=== PATIENT | female | born 1950 | race Caucasian/White ===

== ENCOUNTER → 2017-10-10 | Outpatient (CLI) | payer OTHER, MEDICARE | LOC: FIMAGING 11:58 | PROVIDERS: ATTEND Orthopaedic Surgery | DX: Z01.818 Encounter for other preprocedural examination (principal); M17.12 Unilateral primary osteoarthritis, left knee; M11.262 Other chondrocalcinosis, left knee; M25.462 Effusion, left knee ==

== ENCOUNTER 2017-10-30 08:57 | Observation (INO) | payer OTHER, MEDICARE ==
[~2017-10-30 08:57] MED LIST: ROPIVACAINE 0.2% 80 MG, EPINEPHrine 0.2 MG, KETOROLAC TROMETHAMINE 30 MG in SYRINGE 0 ML IU ONE; TRANEXAMIC ACID 3,000 MG in NS (SYRINGE) 50 ML IRR ONE
[2017-10-30] MEDS ORDERED: ceFAZolin 2 GM/SWFI 2 GM/20 ML SYR IVP ONE (09:07)
[2017-10-30] MEDS ORDERED: FAMOTIDINE 20 MG TAB PO ONE (09:07)
[2017-10-30] MEDS ORDERED: ACETAMINOPHEN 325 MG TAB PO ONE (09:07)
[2017-10-30] MEDS ORDERED: LR 1,000 ML IV ONE (09:07)
[2017-10-30] MEDS ORDERED: DEXAMETHASONE 4 MG/ML VIAL IVP ONE (09:07)
[2017-10-30] MEDS ORDERED: LIDOCAINE 1% 2 ML INJ ID PRN (09:07)
--- NOTE | 2017-10-30 09:14 | PDHPUP ---
History & Physical Update H&P update statement: This history and physical update is based on an assessment of the patient which was completed after admission or registration (within 24 hours), but prior to the surgery/procedure. H&P update: H&P reviewed & patient examined, no change in patient's condition since H&P completed
[2017-10-30] MEDS ORDERED: TRANEXAMIC ACID 3,000 MG/50 ML BAG IRR ONE (09:29)
[2017-10-30] MEDS ORDERED: PROPOFOL/EMULSION 500 MG/50 ML BOTTLE IV ONE (10:50)
[2017-10-30] MEDS ORDERED: BUPIVACAINE/DEXTROSE 7.5MG/ML 2 ML SPINAL AMP SP ONE (10:52)
--- NOTE | 2017-10-30 10:52 | PDANEPAE ---
ANE Past Medical History - Cardiovascular History Hx Hypertension: No Hx Arrhythmias: No Hx Chest Pain: No Hx Coronary Artery / Peripheral Vascular Disease: No Hx CHF / Valvular Disease: No Hx Palpitations: No - Pulmonary History Hx COPD: No Hx Asthma/Reactive Airway Disease: No Hx Recent Upper Respiratory Infection: No Hx Oxygen in Use at Home: No Hx Sleep Apnea: No Sleep Apnea Screening Result - Last Documented: Negative - Neurologic History Hx Cerebrovascular Accident: No Hx Seizures: No Hx Dementia: No - Endocrine History Hx Diabetes: Yes Endocrine History Comment: DM type 2 - Renal History Hx Renal Disorders: No - Liver History Hx Hepatic Disorders: No - Neurological & Psychiatric Hx Hx Neurological and Psychiatric Disorders: No - Cancer History Hx Cancer: No - Congenital Disorder History Hx Congenital Disorders: No - GI History Hx Gastrointestinal Disorders: No - Other Health History Other Health History: left knee arthritis - Chronic Pain History Chronic Pain: No - Surgical History Prior Surgeries: left knee surgery. hysterectomy. bilteral cataract removal ANE Review of Systems Review of Systems: - Exercise capacity METS (RN): 4 METS ANE Patient History - Allergies Allergies/Adverse Reactions: adhesive tape Allergy (Mild, Verified 09/24/17 15:35) Rash Sulfa (Sulfonamide Antibiotics) Allergy (Verified 12/10/14 07:21) sulfamethoxazole [From Septra] Allergy (Verified 12/10/14 07:21) trimethoprim [From Septra] Allergy (Verified 12/10/14 07:21) - Home Medications Home Medications: Atorvastatin Calcium [Lipitor 20 mg (*)] 20 mg PO DAILY 09/24/17 [Last Taken ] Cholecalciferol Vit D3 [Vitamin D3 (*)] 1,000 units PO DAILY 09/24/17 [Last Taken 10/23/17] Estrogens, Conjugated [Premarin] 0.45 mg PO DAILY 09/24/17 [Last Taken 10/23/17] Herbals/Supplements -Info Only 1 ea PO DAILY 09/24/17 [Last Taken 10/23/17] Ibuprofen [Motrin (*)] 200 - 600 mg PO DAILY PRN 09/24/17 [Last Taken 10/23/17] Lansoprazole [Prevacid] 30 mg PO DAILY 09/24/17 [Last Taken 10/23/17] Multivitamins [Multivitamin (*)] 1 each PO DAILY 09/24/17 [Last Taken 10/23/17] [place]-3 Fatty Acids [Fish Oil 1000 mg (*)] 1,000 mg PO DAILY 09/24/17 [Last Taken 10/23/17] Pioglitazone HCl/Metformin HCl [Pioglitazone-Metformin 15-500] 1 each PO BID 11/10 [Last Taken 10/25/17] - NPO status NPO Since - Liquids (Date): 10/30/17 NPO Since - Liquids (Time): 04:00 NPO Since - Solids (Date): 10/29/17 NPO Since - Solids (Time): 18:30 - Smoking Hx Smoking Status: Never smoked - Family Anes Hx Family Hx Anesthesia Complications: none ANE Labs/Vital Signs - Vital Signs Blood Pressure: 130/69 Heart Rate: 63 Respiratory Rate: 16 O2 Sat (%): 97 Height: 154.94 cm Weight: 67.132 kg ANE Physical Exam - Airway Neck exam: FROM Mallampati Score: Class 2 Mouth exam: normal dental/mouth exam - Pulmonary Pulmonary: no respiratory distress - Cardiovascular Cardiovascular: regular rate and rhythym - ASA Status ASA Status: II ANE Anesthesia Plan Anesthesia Plan: spinal Regional Anesthesia: single shot NB Total IV Anesthesia: Yes
[2017-10-30] MEDS ORDERED: PROPOFOL 200 MG/20 ML VIAL ONE (11:53)
[2017-10-30] MEDS ORDERED: LACTULOSE 20 GM/30 ML UDCUP PO PRN (12:20)
[2017-10-30] MEDS ORDERED: DIPHENOXYLATE/ATROPINE LOMOTIL 1 TAB PO PRN (12:20)
[2017-10-30] MEDS ORDERED: TEMAZEPAM 15 MG CAP PO PRN (12:20)
[2017-10-30] MEDS ORDERED: PROMETHAZINE HCL 25 MG/ML INJ IVP PRN (12:20)
[2017-10-30] MEDS ORDERED: POLYETHYLENE GLYCOL 3350 17 GM PKT PO PRN (12:20)
[2017-10-30] MEDS ORDERED: PROMETHAZINE HCL 25 MG SUPPR PR PRN (12:20)
[2017-10-30] MEDS ORDERED: METOCLOPRAMIDE 10 MG/2 ML VIAL IVP PRN (12:20)
[2017-10-30] MEDS ORDERED: BISACODYL 10 MG SUPP PR PRN (12:20)
[2017-10-30] MEDS ORDERED: ONDANSETRON DISINTEGRATING 4 MG TAB PO PRN (12:20)
[2017-10-30] MEDS ORDERED: CYCLOBENZAPRINE 10 MG TAB PO PRN (12:20)
[2017-10-30] MEDS ORDERED: diphenhydrAMINE 25 MG CAP PO PRN (12:20)
[2017-10-30] MEDS ORDERED: ONDANSETRON 4 MG/2 ML VIAL IVP PRN ×2 (12:20→12:33)
[2017-10-30] MEDS ORDERED: MAGNESIUM HYDROXIDE 30 ML UDCUP PO PRN (12:20)
--- NOTE | 2017-10-30 12:20 | POSTOPPROG ---
Post Op Note Date of Operation: 10/30/17 Surgeon: Halie Vega Senior Java Developer: zach vega Anesthesiologist: dr. barahona Anesthesia: Spinal, Other (Specify) (adductor canal block) Pre-op Diagnosis: L eft knee OA Post-op Diagnosis: same Indication: left knee pain due to OA that failed conservative measures Procedure: L TKA robot assisted Findings: severe knee OA Inf/Abcess present in the surg proc area at time of surgery?: No
[2017-10-30] MEDS ORDERED: D50W 25 GM/50 ML SYR IVP PRN (12:22)
[2017-10-30] MEDS ORDERED: LR 1,000 ML IV SCH (12:30)
[2017-10-30] MEDS ORDERED: MEPERIDINE 25 MG/ML SYR IVP PRN (12:33)
[2017-10-30] MEDS ORDERED: ALBUTEROL 3 ML DEYVIAL IH PRN (12:33)
[2017-10-30] MEDS ORDERED: fentaNYL 100 MCG/2 ML INJ IVP PRN (12:33)
[2017-10-30] MEDS ORDERED: NALOXONE HCL 0.4 MG/ML INJ IVP PRN (12:33)
--- NOTE | 2017-10-30 12:34 | POSTANESTH ---
Post Anesthetic Evaluation Cardiovascular Status: Similar to Pre-Op Cond Respiratory Status: Similar to Pre-op Cond. Level of Consciousness/Mental Status: Alert and Oriented Pain Control: Adequate, Prn Tx Ordered Nausea/Vomiting Control: Adequate, Prn Tx Ordered Complications Possibly Related to Anesthesia: None Noted
[2017-10-30] MEDS ORDERED: ceFAZolin 2 GM/DEXTROSE 100 ML IV SCH (14:00)
[2017-10-30] MEDS: oxyCODONE IR 5 MG TAB PO PRN ×3 (14:43→21:20)
[2017-10-30] MEDS: INSULIN REGULAR HUMAN 100 UNIT/ML UNIT SC SCH ×2 (18:33→21:22)
[2017-10-30] MEDS: ACETAMINOPHEN 325 MG TAB PO SCH (18:34)
--- NOTE | 2017-10-30 18:34 | GOP ---
[f rep st] OPERATIVE REPORT DATE OF OPERATION: 10/30/2017 SURGEON: Tian Osborne MD ENVIRONMENTAL MAINTENANCE WORKER: LIBORIO Terrazas. ANESTHESIA: Spinal. PREOPERATIVE DIAGNOSIS: Left knee osteoarthritis. POSTOPERATIVE DIAGNOSIS: Left knee osteoarthritis. PROCEDURE PERFORMED: Left total knee arthroplasty with computer navigation, robotic assist. FINDINGS: ESTIMATED BLOOD LOSS: 30 cc. INDICATIONS: The patient is a 67-year-old female with severe and progressive pain and deformity of the left knee unresponsive to conservative care. The risks and benefits of surgical intervention were explained in detail. DESCRIPTION OF PROCEDURE: The patient was brought to the operative room and placed on the table in the supine position. Spinal anesthesia was induced without difficulty. A pneumatic tourniquet was applied about the left proximal thigh, and the leg was prepped and draped in a sterile fashion. The leg domingo was applied. After exsanguination by elevation the tourniquet was inflated to 250 mmHg. Incision was made anterior medial from the tibial tuberosity to a point 2 cm proximal to the superior pole of the patella. Medial parapatellar arthrotomy was carried out from the superior pole of the patella and posteriorly in line with the fibers of the Type II VMO. The medial collateral ligament was elevated and the infrapatellar fat pad was resected. The patella was everted and the articular surface was excised. A 32 mm patellar button was placed. Attention was turned first to the distal aspect of the femur. After exposure of the femur, 2 half pins were placed for fixation of the femoral array. In a similar fashion, 2 pins were placed anteromedial on the tibia for fixation of the tibial array. External land marking and registration of the hip center was performed without difficulty. Internal femoral and tibial registration was carried out without difficulty and the femoral and tibial checkpoints were placed and verified for accuracy. Attention was turned to the femur. The foot print for the size 4 femoral component was cut with the saw using the Buz robotic system and verified for accuracy against the CT based plan. In a similar fashion, the saw was used to cut the footprint for the size 3 tibial component using the Buz system and verified for accuracy against the CT based plan. The tibial articular surface was excised without difficulty, followed by the intercondylar box cut. The knee was extended and the remnants of the medial and lateral meniscus were excised. The posterior capsule was injected with ropivacaine, epinephrine and Toradol. A size 3 tibial tray was positioned. Trial reduction was then carried out. There was excellent range of motion, alignment, and stability using the 9 mm polyethylene. All trials were then removed. The joint was thoroughly irrigated and carefully dried. The Press-fit components were implanted. The permanent 9 mm polyethylene was placed without difficulty. The tourniquet was deflated and all bleeders were coagulated. The wound was thoroughly irrigated and closed using interrupted sutures of 2-0 Vicryl for the joint capsule. The subcu was closed with 3-0 Vicryl and the skin with 4-0 Monocryl. Dermabond and Steri-Strips were applied followed by a compressive dressing. The patient was then moved from the operating room to the recovery room in good condition, having tolerated the procedure well. /[id number]/MODL MTDD
[2017-10-30] MEDS: PIOGLITAZONE HCL 15 MG TAB PO SCH (18:35)
[2017-10-30] MEDS: metFORMIN HCL 500 MG TAB PO SCH (18:35)
[2017-10-30] MEDS: ceFAZolin 2 GM/DEXTROSE 100 ML IV SCH (18:39)
[2017-10-30] MEDS ORDERED: METFORMIN HCL PO SCH (21:00)
[2017-10-30] MEDS ORDERED: [UNRECOGNIZED DRUG - OTHER] PO SCH (21:00)
[2017-10-30] MEDS ORDERED: PIOGLITAZONE HCL PO SCH (21:00)
[2017-10-30] MEDS: SENNOSIDES/DOCUSATE SODIUM TAB PO SCH (21:19)
[2017-10-30] MEDS: ASPIRIN 81 MG CHEWABLE TAB PO SCH (21:21)
[2017-10-30] MEDS: FAMOTIDINE 20 MG TAB PO SCH (21:21)
[2017-10-31] MEDS: ACETAMINOPHEN 325 MG TAB PO SCH ×2 (01:39→06:25)
[2017-10-31] MEDS: ceFAZolin 2 GM/DEXTROSE 100 ML IV SCH (01:40)
[2017-10-31] MEDS: oxyCODONE IR 5 MG TAB PO PRN ×2 (02:16→09:54)
[2017-10-31 07:22] VITALS: BP 105/55; PULSE 60; RESP 16; TEMP 97.6; O2SAT 97
[2017-10-31] MEDS: INSULIN REGULAR HUMAN 100 UNIT/ML UNIT SC SCH (08:05)
[2017-10-31] MEDS: SENNOSIDES/DOCUSATE SODIUM TAB PO SCH (08:06)
[2017-10-31] MEDS: PIOGLITAZONE HCL 15 MG TAB PO SCH (08:07)
[2017-10-31] MEDS: metFORMIN HCL 500 MG TAB PO SCH (08:07)
[2017-10-31] MEDS: FAMOTIDINE 20 MG TAB PO SCH (08:07)
[2017-10-31] MEDS ORDERED: PANTOPRAZOLE SODIUM 40 MG TAB PO SCH (09:00)
[2017-10-31] MEDS ORDERED: ATORVASTATIN CALCIUM 20 MG TAB PO SCH (09:00)
[2017-10-31] MEDS ORDERED: LANSOPRAZOLE SUSP 3 MG/ML UDSYR (Peds) PO SCH (09:00)
[2017-10-31] MEDS: ASPIRIN 81 MG CHEWABLE TAB PO SCH (09:54)
--- NOTE | 2017-10-31 12:38 | SOAPPROG ---
SOAP Progress Note Assessment/Plan: Assessment: Patient is doing well POD 1 s/p L TKA Pain management: pain is well controlled on oral pain meds. VTE ppx: recommend aspirin 81 mg BID for 4 weeks, cont ROSETTA and SCDs Anemia: level is expected initially postop. Asymptomatic. Continue to monitor D/c planning: d/c to home today pending release from PT Plan: 10/31/17 12:37 Subjective: Mita is doing well today, denies SOB, chest pain and n/V. Objective: Vital Signs Temp Pulse Resp BP Pulse Ox 36.4 C 60 16 105/55 L 97 10/31/17 07:20 10/31/17 07:20 10/31/17 07:20 10/31/17 07:20 10/31/17 07:20 Laboratory Results 10/31/17 05:05 10/30/17 10/31/17 11/01/17 05:59 05:59 05:59 Intake Total 1050 Output Total 1200 200 Balance -150 -200 LLE: incision dressing is clean and dry, NVI, +pf/df ICD10 Worksheet Patient Problems: Problems Problem Status Onset Primary localized osteoarthritis of left knee Acute
== END 2017-10-31 12:42 | disposition home or self-care (01) ==
LOC: F3N 08:57 → INTOOBSV 08:57 → F3N 14:09
PROVIDERS: ADMIT Orthopaedic Surgery; ATTEND Orthopaedic Surgery
PROC: 0SRD0JZ Replacement of Left Knee Joint with Synthetic Substitute, Open Approach (ICD-10-PCS; principal; 2017-10-30 11:15)
DX: M17.12 Unilateral primary osteoarthritis, left knee (principal)
CPT/HCPCS: 27447; 73560; 88311; 97110; 97116; 97161; 97165; C1776; G8978; G8979; G8987; G8988; G8989; J0171; J0690; J1100; J1815; J1885; J2704; J2795

== ENCOUNTER 2017-12-11 05:40 | Day surgery (SDC) | payer OTHER, MEDICARE ==
[2017-12-11] MEDS ORDERED: LIDOCAINE 1% 2 ML INJ ID PRN (06:17)
[2017-12-11] MEDS ORDERED: LR 1,000 ML IV ONE (06:17)
--- NOTE | 2017-12-11 07:58 | PDANEPAE ---
ANE History of Present Illness Limited motion after TKA ANE Past Medical History - Cardiovascular History Hx Hypertension: No Hx Arrhythmias: No Hx Chest Pain: No Hx Coronary Artery / Peripheral Vascular Disease: No Hx CHF / Valvular Disease: No Hx Palpitations: No - Pulmonary History Hx COPD: No Hx Asthma/Reactive Airway Disease: No Hx Recent Upper Respiratory Infection: No Hx Oxygen in Use at Home: No Hx Sleep Apnea: No Sleep Apnea Screening Result - Last Documented: Negative - Neurologic History Hx Cerebrovascular Accident: No Hx Seizures: No Hx Dementia: No - Endocrine History Hx Diabetes: Yes Endocrine History Comment: DM type 2 - Renal History Hx Renal Disorders: No - Liver History Hx Hepatic Disorders: No - Neurological & Psychiatric Hx Hx Neurological and Psychiatric Disorders: No - Cancer History Hx Cancer: No - Congenital Disorder History Hx Congenital Disorders: No - GI History Hx Gastrointestinal Disorders: No - Other Health History Other Health History: left knee arthritis. Red spots around left knee - Chronic Pain History Chronic Pain: No (left knee) - Surgical History Prior Surgeries: left knee surgery. hysterectomy. bilteral cataract removal ANE Review of Systems Review of Systems: - Exercise capacity METS (RN): 4 METS ANE Patient History - Allergies Allergies/Adverse Reactions: adhesive tape Allergy (Mild, Verified 09/24/17 15:35) Rash Sulfa (Sulfonamide Antibiotics) Allergy (Verified 12/10/14 07:21) sulfamethoxazole [From Septra] Allergy (Verified 12/10/14 07:21) trimethoprim [From Septra] Allergy (Verified 12/10/14 07:21) - Home Medications Home Medications: Atorvastatin Calcium [Lipitor 20 mg (*)] 20 mg PO DAILY 09/24/17 [Last Taken ] Cholecalciferol Vit D3 [Vitamin D3 (*)] 1,000 units PO DAILY 09/24/17 [Last Taken 12/10/17 08:00] Herbals/Supplements -Info Only 1 ea PO DAILY 09/24/17 [Last Taken 12/10/17 08:30 ] Lansoprazole [Prevacid] 30 mg PO DAILY 09/24/17 [Last Taken 12/11/17 04:30] Multivitamins [Multivitamin (*)] 1 each PO DAILY 09/24/17 [Last Taken 12/10/17 08:30] [place]-3 Fatty Acids [Fish Oil 1000 mg (*)] 1,000 mg PO DAILY 09/24/17 [Last Taken 12/10/17 08:00] Pioglitazone HCl/Metformin HCl [Pioglitazone-Metformin 15-500] 1 each PO BID 11/10 [Last Taken 12/10/17 12:30] - NPO status NPO Since - Liquids (Date): 12/10/17 NPO Since - Liquids (Time): 21:00 NPO Since - Solids (Date): 12/10/17 NPO Since - Solids (Time): 19:30 - Anes Hx Anes Hx: no prior problems - Smoking Hx Smoking Status: Never smoked - Family Anes Hx Family Hx Anesthesia Complications: none ANE Labs/Vital Signs - Labs Result Diagrams: 12/11/17 06:35 - Vital Signs Blood Pressure: 105/56 Heart Rate: 65 Respiratory Rate: 16 O2 Sat (%): 94 Height: 156.21 cm Weight: 65.771 kg ANE Physical Exam - Airway Neck exam: FROM Mallampati Score: Class 1 Mouth exam: normal dental/mouth exam - Pulmonary Pulmonary: no respiratory distress - Cardiovascular Cardiovascular: regular rate and rhythym - ASA Status ASA Status: II ANE Anesthesia Plan Anesthesia Plan: GA with mask
[2017-12-11] MEDS ORDERED: MIDAZOLAM 2 MG/2 ML VIAL IVP ONE (08:01)
[2017-12-11] MEDS ORDERED: PROPOFOL 200 MG/20 ML VIAL ONE (08:08)
[2017-12-11] MEDS ORDERED: fentaNYL 100 MCG/2 ML INJ ONE ×3 (08:08→08:56)
[2017-12-11] MEDS ORDERED: LIDOCAINE 2% 5 ML SDV ONE (08:10)
[2017-12-11] MEDS ORDERED: ONDANSETRON 4 MG/2 ML VIAL IVP PRN (08:12)
[2017-12-11] MEDS ORDERED: NALOXONE HCL 0.4 MG/ML INJ IVP PRN (08:12)
[2017-12-11] MEDS ORDERED: PROMETHAZINE HCL 25 MG/ML INJ IVP PRN (08:12)
[2017-12-11] MEDS ORDERED: DEXAMETHASONE 4 MG/ML VIAL ONE (08:12)
[2017-12-11] MEDS ORDERED: ONDANSETRON 4 MG/2 ML VIAL ONE (08:13)
--- NOTE | 2017-12-11 08:26 | POSTOPPROG ---
Post Op Note Date of Operation: 12/11/17 Surgeon: Halie Osborne Anesthesiologist: dr. olvera Anesthesia: GET(General Endotracheal) Pre-op Diagnosis: limited ROM in setting of TKA 10-45 Post-op Diagnosis: limited ROM Indication: limited ROM postop TKA 10-45 Procedure: PELON Findings: preop ROM 10-45, postop ROM 0-125 Inf/Abcess present in the surg proc area at time of surgery?: No
--- NOTE | 2017-12-11 08:36 | POSTANESTH ---
Post Anesthetic Evaluation Cardiovascular Status: Normal, Stable Respiratory Status: Normal, Stable Level of Consciousness/Mental Status: Can Participate in Eval Pain Control: Inadeq, Add Tx Required Nausea/Vomiting Control: Adequate, Prn Tx Ordered Complications Possibly Related to Anesthesia: None Noted
[2017-12-11] MEDS: fentaNYL 100 MCG/2 ML INJ IVP PRN ×4 (08:38→09:14)
[2017-12-11] MEDS ORDERED: HYDROCODONE/APAP 5/325 TAB PO PRN (10:21)
[2017-12-11 10:39] VITALS: PULSE 67; RESP 17; TEMP 97.3
[2017-12-11 10:48] VITALS: BP 101/63; O2SAT 95
--- NOTE | 2017-12-12 14:06 | GOP ---
[f rep st] OPERATIVE REPORT DATE OF OPERATION: 12/11/2017 SURGEON: Tian Osborne MD ANESTHESIA: General. PREOPERATIVE DIAGNOSIS: Left knee adhesions and stiffness status post total knee replacement. POSTOPERATIVE DIAGNOSIS: Left knee adhesions and stiffness status post total knee replacement. PROCEDURE PERFORMED: Left knee manipulation under anesthesia. FINDINGS: INDICATIONS: This is a 67-year-old female who underwent a left total knee replacement, who was havin g progression and regression of her range of motion. Risks and benefits of manipulation were explain ed to the patient including fracture. The patient expressed understanding, and informed consent was obtained. DESCRIPTION OF PROCEDURE: The patient was identified in the preoperative holding area. Her left low er extremity was marked. She was then brought back to the operating room. After induction of anesth esia, a time-out was taken confirming the patient, laterality, procedures, allergies, and antibiotic status. We then proceeded with a manipulation under anesthesia. Preoperatively, the patient's range of motion was from 10 to 45. We then applied steady firm but gentle pressure to the knee. There wa s good release of scar tissue. The patient's postoperative range of motion was from 0 to 125. She w as then awakened and brought to PACU in good condition, with a well-perfused limb. The plan is for t he patient to be weightbearing as tolerated and do daily physical therapy. /[id number]/MODL
== END 2017-12-11 11:05 | disposition home or self-care (01) ==
LOC: FSGY 05:40
PROVIDERS: ATTEND Orthopaedic Surgery
PROC: 0SSDXZZ Reposition Left Knee Joint, External Approach (ICD-10-PCS; principal; 2017-12-11 08:15)
DX: M23.8X2 Other internal derangements of left knee (principal); M25.662 Stiffness of left knee, not elsewhere classified; Z96.652 Presence of left artificial knee joint
CPT/HCPCS: J1100; J2250; J2405; J2704; J3010

== ENCOUNTER → 2018-11-07 | Outpatient (CLI) | payer OTHER, MEDICARE | LOC: FIMAGING 10:30 | PROVIDERS: ATTEND Orthopaedic Surgery | DX: M25.562 Pain in left knee (principal); Z96.652 Presence of left artificial knee joint | CPT/HCPCS: 78315; A9503 ==

== ENCOUNTER 2018-11-28 09:46 | Inpatient (IN) | payer OTHER, MEDICARE ==
[~2018-11-28 09:46] MED LIST changes: -ROPIVACAINE 0.2% 80 MG, EPINEPHrine 0.2 MG, KETOROLAC TROMETHAMINE 30 MG in SYRINGE 0 ML IU ONE; -TRANEXAMIC ACID 3,000 MG in NS (SYRINGE) 50 ML IRR ONE; +TRANEXAMIC ACID 3,000 MG/50 ML BAG IRR ONE; +VANCOMYCIN 1 GM VIAL ONE
[2018-11-28] MEDS ORDERED: ceFAZolin 2 GM/DEXTROSE 100 ML IV ONE (10:16)
[2018-11-28] MEDS ORDERED: ACETAMINOPHEN 325 MG TAB PO ONE (10:16)
[2018-11-28] MEDS ORDERED: FAMOTIDINE 20 MG TAB PO ONE (10:16)
[2018-11-28] MEDS ORDERED: LR 1,000 ML IV ONE (10:17)
[2018-11-28] MEDS ORDERED: TRANEXAMIC ACID 3,000 MG in NS (SYRINGE) 50 ML IRR ONE (12:00)
[2018-11-28] MEDS ORDERED: ROPIVACAINE 0.2% 80 MG, EPINEPHrine 0.2 MG, KETOROLAC TROMETHAMINE 30 MG in SYRINGE 0 ML IU ONE (12:00)
[2018-11-28] MEDS ORDERED: MIDAZOLAM 2 MG/2 ML VIAL ONE (12:13)
[2018-11-28] MEDS ORDERED: PROPOFOL/EMULSION 500 MG/50 ML BOTTLE IV ONE (12:16)
[2018-11-28] MEDS ORDERED: fentaNYL 100 MCG/2 ML INJ ONE ×2 (12:37→14:47)
[2018-11-28] MEDS ORDERED: ONDANSETRON 4 MG/2 ML VIAL ONE (12:44)
[2018-11-28] MEDS ORDERED: METOCLOPRAMIDE 10 MG/2 ML VIAL ONE (12:44)
[2018-11-28] MEDS ORDERED: PHENYLEPHRINE HCL 100 MCG/ML SYR ONE (13:03)
[2018-11-28] MEDS ORDERED: MIDAZOLAM 2 MG/2 ML VIAL IVP ONE (13:23)
[2018-11-28] MEDS ORDERED: ONDANSETRON 4 MG/2 ML VIAL IVP PRN ×2 (13:23→14:13)
[2018-11-28] MEDS ORDERED: NALOXONE HCL 0.4 MG/ML INJ IVP PRN (13:23)
[2018-11-28] MEDS ORDERED: ALBUTEROL 3 ML DEYVIAL IH PRN (13:23)
[2018-11-28] MEDS ORDERED: DEXAMETHASONE 4 MG/ML VIAL IVP PRN (13:23)
[2018-11-28] MEDS ORDERED: HYDROmorphONE/DILAUDID 2 MG/ML INJ IVP PRN (13:23)
[2018-11-28] MEDS ORDERED: oxyCODONE IR 5 MG TAB PO PRN (13:23)
--- NOTE | 2018-11-28 13:24 | PDANEPAE ---
ANE History of Present Illness L Knee Revision ANE Past Medical History - Cardiovascular History Hx Hypertension: No Hx Arrhythmias: No Hx Chest Pain: No Hx Coronary Artery / Peripheral Vascular Disease: No Hx CHF / Valvular Disease: No Hx Palpitations: No - Pulmonary History Hx COPD: No Hx Asthma/Reactive Airway Disease: No Hx Recent Upper Respiratory Infection: No Hx Oxygen in Use at Home: No Hx Sleep Apnea: No Sleep Apnea Screening Result - Last Documented: Negative Pulmonary History Comment: FLU 08/2018 - Neurologic History Hx Cerebrovascular Accident: No Hx Seizures: No Hx Dementia: No - Endocrine History Hx Diabetes: Yes Endocrine History Comment: NIDDM - Renal History Hx Renal Disorders: No - Liver History Hx Hepatic Disorders: No - Neurological & Psychiatric Hx Hx Neurological and Psychiatric Disorders: No - Cancer History Hx Cancer: No - Congenital Disorder History Hx Congenital Disorders: No - GI History Hx Gastrointestinal Disorders: Yes Gastrointestinal History Comment: GERD - Other Health History Other Health History: OSTEOARTHRITIS - Chronic Pain History Chronic Pain: Yes (left knee) - Surgical History Prior Surgeries: LT TOTAL KNEE 11/2017. left knee SCOPE. hysterectomy. bilteral cataract removal ANE Review of Systems Review of Systems: - Exercise capacity METS (RN): 3 METS ANE Patient History - Allergies Allergies/Adverse Reactions: adhesive tape Allergy (Mild, Verified 09/24/17 15:35) Rash Sulfa (Sulfonamide Antibiotics) Allergy (Verified 11/12/18 13:36) Vomiting sulfamethoxazole [From Septra] Allergy (Verified 11/12/18 13:36) Vomiting trimethoprim [From Septra] Allergy (Verified 11/12/18 13:36) Vomiting - Home Medications Home Medications: Atorvastatin Calcium [Lipitor 20 mg (*)] 20 mg PO DAILY 09/24/17 [Last Taken 05/11] Herbals/Supplements -Info Only 1 ea PO DAILY 09/24/17 [Last Taken 11/21/18] Lansoprazole [Prevacid] 30 mg PO SUTUTHSA 09/24/17 [Last Taken 11/26/18] Multivitamins [Multivitamin (*)] 1 each PO DAILY 09/24/17 [Last Taken 11/21/18] [place]-3 Fatty Acids [Fish Oil 1000 mg (*)] 1,000 mg PO DAILY 09/24/17 [Last Taken 11/21/18] Ibuprofen [Motrin (*)] 200 mg PO DAILY PRN 11/12/18 [Last Taken 11/21/18] Pioglitazone HCl [Actos] 30 mg PO DAILY 11/12/18 [Last Taken 11/27/18] metFORMIN SR [Glucophage XR 500 mg (*)] 1,000 mg PO DAILY@1800 11/12/18 [Last Taken 11/25/18] - NPO status NPO Since - Liquids (Date): 11/28/18 NPO Since - Liquids (Time): 08:30 NPO Since - Solids (Date): 11/27/18 NPO Since - Solids (Time): 17:30 - Smoking Hx Smoking Status: Never smoked - Family Anes Hx Family Hx Anesthesia Complications: none ANE Labs/Vital Signs - Labs Result Diagrams: 11/28/18 11:33 - Vital Signs Height: 156.21 cm Weight: 68.946 kg ANE Physical Exam - Airway Neck exam: FROM Mallampati Score: Class 2 Mouth exam: normal dental/mouth exam - Pulmonary Pulmonary: clear to auscultation - Cardiovascular Cardiovascular: regular rate and rhythym ANE Anesthesia Plan Anesthesia Plan: spinal Regional Anesthesia: adductor canal FNB
--- NOTE | 2018-11-28 14:08 | POSTOPPROG ---
Post Op Note Date of Operation: 11/28/18 Surgeon: Halie Osborne Nutrition Services Aide: Darya Grant PAc, Edith Osborne PAc Anesthesiologist: Juliano Anesthesia: Spinal Pre-op Diagnosis: Failed L TKA Post-op Diagnosis: same Indication: pain, loose femur Procedure: rev L TKA Findings: poor bone ingrowth on femur, stable tibia Inf/Abcess present in the surg proc area at time of surgery?: No EBL: 50-100
[2018-11-28] MEDS ORDERED: ONDANSETRON DISINTEGRATING 4 MG TAB PO PRN (14:13)
[2018-11-28] MEDS ORDERED: POLYETHYLENE GLYCOL 3350 17 GM PKT PO PRN (14:13)
[2018-11-28] MEDS ORDERED: TEMAZEPAM 15 MG CAP PO PRN (14:13)
[2018-11-28] MEDS ORDERED: BISACODYL 10 MG SUPP PR PRN (14:13)
[2018-11-28] MEDS ORDERED: DIPHENOXYLATE/ATROPINE LOMOTIL 1 TAB PO PRN (14:13)
[2018-11-28] MEDS ORDERED: LACTULOSE 20 GM/30 ML UDCUP PO PRN (14:13)
[2018-11-28] MEDS ORDERED: CYCLOBENZAPRINE 10 MG TAB PO PRN (14:13)
[2018-11-28] MEDS ORDERED: METOCLOPRAMIDE 10 MG/2 ML VIAL IVP PRN (14:13)
[2018-11-28] MEDS ORDERED: PROMETHAZINE HCL 25 MG SUPPR PR PRN (14:13)
[2018-11-28] MEDS ORDERED: MAGNESIUM HYDROXIDE 30 ML UDCUP PO PRN (14:13)
[2018-11-28] MEDS ORDERED: PROMETHAZINE HCL 25 MG/ML INJ IVP PRN (14:13)
[2018-11-28] MEDS ORDERED: diphenhydrAMINE 25 MG CAP PO PRN (14:13)
--- NOTE | 2018-11-28 14:14 | POSTANESTH ---
Post Anesthetic Evaluation Cardiovascular Status: Normal, Stable Respiratory Status: Normal, Stable Level of Consciousness/Mental Status: Can Participate in Eval Pain Control: Adequate, Prn Tx Ordered Nausea/Vomiting Control: Adequate, Prn Tx Ordered Complications Possibly Related to Anesthesia: None Noted
[2018-11-28] MEDS ORDERED: D50W 25 GM/50 ML SYR IVP PRN (14:18)
[2018-11-28] MEDS ORDERED: LR 1,000 ML IV SCH (14:30)
[2018-11-28] MEDS: fentaNYL 100 MCG/2 ML INJ IVP PRN ×2 (14:50→18:04)
--- NOTE | 2018-11-28 15:00 | PDMN ---
Medical Necessity Medical necessity: [facility] IP only surgery; cpt 28949 L TKA Revision
[2018-11-28] MEDS ORDERED: metFORMIN SR 500 MG TAB PO SCH (18:00)
[2018-11-28] MEDS: oxyCODONE IR 5 MG TAB PO PRN (18:41)
[2018-11-28] MEDS: INSULIN REGULAR HUMAN 100 UNIT/ML UNIT SC SCH ×2 (18:48→21:39)
[2018-11-28] MEDS: ACETAMINOPHEN 325 MG TAB PO SCH (20:13)
[2018-11-28] MEDS: SENNOSIDES/DOCUSATE SODIUM TAB PO SCH (20:14)
[2018-11-28] MEDS: FAMOTIDINE 20 MG TAB PO SCH (20:14)
[2018-11-28] MEDS: ASPIRIN 81 MG CHEWABLE TAB PO SCH (20:14)
--- NOTE | 2018-11-28 20:36 | GOP ---
[f rep st] OPERATIVE REPORT DATE OF OPERATION: 11/28/2018 SURGEON: Tian Osborne MD [employer] WEIGHER: 1. Edith Osborne, PAC. 2. Jamilah Grant, PAC. ANESTHESIA: Spinal. PREOPERATIVE DIAGNOSIS: Left failed total knee arthroplasty. POSTOPERATIVE DIAGNOSIS: Left failed total knee arthroplasty. PROCEDURE PERFORMED: Left revision total knee arthroplasty, two component. FINDINGS: INDICATIONS: The patient is a 68-year-old female who underwent a left total knee arthroplasty approximately one year ago. Had increasing pain and discomfort. Bone scan showed that the femur was loose and some question if the tibia was loose. Infection markers were negative. Risks and benefits were discussed with the patient. Informed consent was obtained. DESCRIPTION OF PROCEDURE: The patient was identified in the preoperative holding area. Her left lower extremity was marked, and she was brought back to the operating room after induction of anesthesia. A pneumatic tourniquet was placed on the left upper thigh. She was then prepped and draped in the usual sterile fashion. We then proceeded through the incision. The tourniquet was inflated prior for a total of 34 minutes at 250 mmHg. We made the incision through the prior incision, extending it slightly. Dissected down to the joint capsule. Performed arthrotomy. Removed some scar tissue. Identified the polyethylene. This was removed. We then turned our attention to the femur. The femur was examined. It was not grossly unstable. Using a series of chisels and a slap hammer, the femoral compartment was able to be removed. There appeared to be a minimal growth on the distal and posterior surfaces when examining the implant. There was minimal bone loss. This was a size 4 PS Triathlon component. Prior to cementing the femur we examined the tibial component. The removal device was placed on the tibial component and locked in position. The tibial component was very stable. No signs of loosening whatsoever. As it would have caused much more destruction and damage to remove the tibial component, decision was made to just proceed and leave the tibial metal component and just revise the poly and the femur. The size 4 PS left femoral component was cemented. We then placed our final polyethylene. The incision was copiously irrigated. It was closed in layers. The patient was awakened and brought brought to PACU , plan is for patient to weight bear as tolerated. She will be admitted to the orthopedic service. /[id number]/MODL MTDD
[2018-11-28] MEDS: ceFAZolin 2 GM/DEXTROSE 100 ML IV SCH (21:42)
[2018-11-29] MEDS: ACETAMINOPHEN 325 MG TAB PO SCH ×2 (01:51→08:34)
[2018-11-29] MEDS: ceFAZolin 2 GM/DEXTROSE 100 ML IV SCH (05:08)
[2018-11-29 07:20] VITALS: BP 106/60
[2018-11-29] MEDS: INSULIN REGULAR HUMAN 100 UNIT/ML UNIT SC SCH (07:28)
[2018-11-29] MEDS: ASPIRIN 81 MG CHEWABLE TAB PO SCH (08:35)
[2018-11-29] MEDS: FAMOTIDINE 20 MG TAB PO SCH (08:35)
[2018-11-29] MEDS: SENNOSIDES/DOCUSATE SODIUM TAB PO SCH (08:36)
[2018-11-29] MEDS: oxyCODONE IR 5 MG TAB PO PRN ×2 (08:42→11:33)
[2018-11-29] MEDS ORDERED: PIOGLITAZONE HCL 15 MG TAB PO SCH (09:00)
[2018-11-29] MEDS ORDERED: ATORVASTATIN CALCIUM 20 MG TAB PO SCH (09:00)
--- NOTE | 2018-11-29 11:47 | SOAPPROG ---
SOAP Progress Note Assessment/Plan: Assessment: Patient is doing well POD 1 s/p LTKA revision Pain management: pain is well controlled on oral pain meds. VTE ppx: recommend 81 mg aspirin morning and evening for 4 weeks, cont ROSETTA and SCDs Anemia: level is expected initially postop. Asymptomatic. Continue to monitor D/c planning:patient has done much better than anticipated. Patient is stable, BP stable, pain well controlled and patient is eager for discharge to home. January d/c to home today pending release from PT Plan: 11/29/18 11:46 Subjective: No nausea, vomiting, shortness of breath, chest pain Objective: Vital Signs Temp Pulse Resp BP Pulse Ox 36.5 C 72 16 106/60 96 11/29/18 07:19 11/29/18 07:19 11/29/18 07:19 11/29/18 07:19 11/29/18 07:19 Laboratory Results 11/29/18 04:32 11/28/18 11:33 11/28/18 11/29/18 11/30/18 05:59 05:59 06:59 Intake Total 3309 Output Total 285 300 Balance 3024 -300 LLE: incision dressing clean and dry, NVI, positive PF/DF ICD10 Worksheet Patient Problems: Problems Problem Status Onset Arthrofibrosis of total knee replacement Acute Primary localized osteoarthritis of left knee Acute
[2018-11-29] MEDS ORDERED: PANTOPRAZOLE SODIUM 40 MG TAB PO SCH (14:17)
--- NOTE | 2018-11-29 15:39 | ASMTLACE ---
LACE Length of stay for Answers: Less than 1 day current admission Acuity / Level of Answers: Yes Care: Did the patient have an inpatient admission? # of Emergency department Answers: 0 visits in the last 6 months Score: 3 Date Signed: 11/29/2018 03:39 PM Electronically Signed By:STEPHANIE Parikh
--- NOTE | 2018-11-29 15:42 | ASDISCHSUM ---
Discharge Information Plan Status:Home with No Needs Medically Cleared to Leave:11/28/2018 Discharge Date:11/29/2018 11:39 AM CM D/C Disposition:Home, Routine, Self-Care ADT D/C Disposition:Home, Routine, Self-Care Projected Discharge Date:11/29/2018 11:39 AM Transportation at D/C:Family Discharge Delay Reason: Follow-Up Date:11/29/2018 11:39 AM Discharge Slot: Final Diagnosis: Placement Information Patient Contact Information Contact Name:FRANCI Relationship: Address:[address] [address] Work Phone: City:[facility] Phone: [facility]/Zip Code:[place] [address] Email: Financial Information Financial Class:Medicare Primary Plan Desc:MEDICARE INPATIENT Primary Plan Number:[id number] Secondary Plan Desc:RACIEL/DEBO SUPPLEMENT Secondary Plan Number:[id number] Assessment Information LACE LACE Length of stay for Answers: Less than 1 day current admission Acuity / Level of Answers: Yes Care: Did the patient have an inpatient admission? # of Emergency department Answers: 0 visits in the last 6 months Score: 3 Date Signed: 11/29/2018 03:39 PM Electronically Signed By:STEPHANIE Parikh Case Management Discharge Plan Note Case Management Discharge Discharge Order Complete? Answers: Yes Patient to Obtain Answers: via Family Medications Transportation Arranged Answers: Family/Friends Discharge Comments Notes: Pt is s/p revision failed L TKA. Cleared by PT for outpatient therapy. Pt discharging home today with no CM needs. Date Signed: 11/29/2018 03:41 PM Electronically Signed By:STEPHANIE Parikh Intervention Information
--- NOTE | 2018-11-29 16:03 | GDS ---
[f rep st] DISCHARGE SUMMARY SUPERVISING PHYSICIAN: Dr. Roderick Osborne. ADMISSION DIAGNOSIS: Left knee osteoarthritis. DISCHARGE DIAGNOSIS: Left knee osteoarthritis. PROCEDURE: Revision of left total knee arthroplasty. VTE PROPHYLAXIS: Recommend aspirin 81 mg twice daily for 4 weeks. BRIEF DESCRIPTION OF HOSPITAL STAY: Patient was admitted for an elective joint arthroplasty. The pa tient tolerated the procedure well and has passed physical therapy. The patient was given appropriat e antibiotic prophylaxis and venous thromboembolism prophylaxis. The patient's pain was well control led on oral pain medication, patient was holding down food, and had urinated. Decision was made to d ischarge the patient. The patient was given post-operative prescriptions pre-operatively. PLAN: Follow up in Dr. Osborne's office on 12/18/2018, at 10:45 a.m. /[id number]/MODL
--- NOTE | 2018-12-03 08:37 | CPEKG ---
Test Reason : OPEN Blood Pressure : / mmHG Vent. Rate : 075 BPM Atrial Rate : 075 BPM P-R Int : 136 ms QRS Dur : 088 ms QT Int : 387 ms P-R-T Axes : 038 -09 033 degrees QTc Int : 433 ms Sinus rhythm Low voltage, precordial leads Abnormal R-wave progression, early transition Confirmed by Ignacio Murillo ([id number]) on 12/03/2018 8:36:40 AM Referred By: Halie Osborne Confirmed By:Ignacio Murillo
== END 2018-11-29 11:39 | disposition home or self-care (01) | DRG 468 ==
LOC: F3N 09:46
PROVIDERS: ADMIT Orthopaedic Surgery; ATTEND Orthopaedic Surgery
DX: T84.033A Mechanical loosening of internal left knee prosthetic joint, initial encounter (principal); T84.84XA Pain due to internal orthopedic prosthetic devices, implants and grafts, initial encounter; M17.12 Unilateral primary osteoarthritis, left knee; Z96.652 Presence of left artificial knee joint
CPT/HCPCS: 97161-GP; C1713; J0171; J0690; J1815; J1885; J2250; J2370; J2405; J2704; J2765; J2795; J3010; J3370